=== PATIENT | female | born 1985 | race Caucasian/White ===

== ENCOUNTER → 2017-02-13 | Outpatient (CLI) | payer OTHER ==
--- NOTE | 2017-02-13 15:01 | XR ---
EXAMINATION TYPE: XR hand complete RT DATE OF EXAM: 02/13/2017 COMPARISON: NONE HISTORY: Pain TECHNIQUE: Three views are submitted. FINDINGS: The osseous structures are intact. The joint spaces are preserved and there is no acute fracture or dislocation. Arthropathy of the radiocarpal joint. IMPRESSION: 1. No definite acute fracture or dislocation if symptoms persist, follow-up study in 7 to 10 days wo uld be suggested
== END | disposition home or self-care (01) ==
LOC: RADXRMAIN 14:40
PROVIDERS: ATTEND Emergency Medicine
DX: S61.202A Unspecified open wound of right middle finger without damage to nail, initial encounter (principal); S67.192A Crushing injury of right middle finger, initial encounter; S67.190A Crushing injury of right index finger, initial encounter; S67.194A Crushing injury of right ring finger, initial encounter

== ENCOUNTER 2018-09-30 09:20 | Emergency (ER) | payer OTHER ==
[2018-09-30 09:29] VITALS: RESP 18
--- NOTE | 2018-09-30 09:56 | XR ---
EXAMINATION TYPE: XR chest 2V DATE OF EXAM: 09/30/2018 COMPARISON: None HISTORY: 33-year-old female cough and pain TECHNIQUE: PA and lateral views FINDINGS: Heart normal size. Aorta and pulmonary vasculature within normal limits. Mild interstitial prominence and slight patchy opacity at the left heart margin. No pleural effusion. IMPRESSION: Unable to exclude developing pneumonia at the inferior lingula.
[2018-09-30] MEDS ORDERED: DEXAMETHASONE 4 MG TAB PO STA (10:17)
--- NOTE | 2018-09-30 10:17 | ED ---
URI HPI - General Chief Complaint: Upper Respiratory Infection Stated Complaint: cough, no voice Time Seen by Provider: 09/30/18 09:35 Source: patient Mode of arrival: ambulatory Limitations: no limitations - History of Present Illness Initial Comments: 33-year-old female presenting today for chief complaint of cough sore throat and loss of voice. Patient states that Thursday she began having increasing cough and mucus production. She denies any hemoptysis she states she is a smoker. Patient states usually gets strep throat around this time and has had ice mild sore throat she denies any difficulty breathing or swallowing. Patient denies abdominal pain nausea vomiting diarrhea. Patient denies fever. Remaining review of systems negative, Patient denies any recent shortness of breath, chest pain, back pain, numbness or tingling, dysuria or hematuria, constipation, headaches, neck stiffness, ear pain or visual changes, or any other complaints. upon arrival patient appears well - Related Data Previous Rx's Medication Instructions Recorded Azithromycin [Zithromax Z-pack] 0 mg PO DIRECTED #6 tab 09/30/18 Allergies Allergy/AdvReac Type Severity Reaction Status Date / Time No Known Allergies Allergy Verified 09/30/18 09:36 Review of Systems ROS Statement: Those systems with pertinent positive or pertinent negative responses have been documented in the HPI. ROS Other: All systems not noted in ROS Statement are negative. Past Medical History Additional Past Medical History / Comment(s): carpal tunnel History of Any Multi-Drug Resistant Organisms: None Reported Past Surgical History: No Surgical Hx Reported Past Psychological History: No Psychological Hx Reported Smoking Status: Never smoker Past Alcohol Use History: Occasional Past Drug Use History: None Reported General Exam - General Exam Comments Initial Comments: General: The patient is awake and alert, in no distress, and does not appear acutely ill. Eye: +3 mm pupils are equal, round and reactive to light, extra-ocular movements are intact. No nystagmus. There is normal conjunctiva bilaterally. No signs of icterus. No photophobia Ears, nose, mouth and throat: There are moist mucous membranes and no oral lesions. Oropharynx was not erythematous there is no tonsillar enlargement exudates or lesions. Uvula midline. Tympanic membranes are not erythematous or is no effusions bulging or retraction. No tenderness to palpation of the mastoid. No anterior cervical lymphadenopathy. Rhinorrhea, clear and bilateral nares. No tripoding, no drooling. Neck: The neck is supple, there is no tenderness or JVD. No nuchal rigidity negative Brudzinski and Kernig Cardiovascular: There is a regular rate and rhythm. No murmur, rub or gallop is appreciated. Respiratory: Lungs are clear to auscultation, respirations are non-labored, breath sounds are equal. No wheezes, stridor, rales, or rhonchi. No retractions or abdominal breathing. Gastrointestinal: Soft, non-distended, non-tender abdomen without masses or organomegaly noted. There is no rebound or guarding present. Bowel sounds are unremarkable. Musculoskeletal: Normal ROM, no tenderness. Strength 5/5. Sensation intact. Radial pulses equal bilaterally 2+. Neurological: A&O x 3. CN II-XII intact, There are no obvious motor or sensory deficits. Coordination appears grossly intact. Speech hoarse. Skin: Skin is warm and dry and no rashes or lesions are noted. No extremity edema Psychiatric: Cooperative Limitations: no limitations Course Vital Signs 09/30/18 09/30/18 09:26 11:12 Temperature 99.5 F 98.8 F Pulse Rate 104 H 98 Respiratory 18 18 Rate Blood Pressure 150/83 142/93 O2 Sat by Pulse 99 100 Oximetry Medical Decision Making - Medical Decision Making The 3-year-old female presenting today for chief complaint of cough congestion sore throat. Patient is mildly erythematous oropharynx however states she for [place] strep pharyngitis. Rapid strep testing negative. There is no tonsillar exudates or anterior cervical lymphadenopathy to support strep pharyngitis. I've low suspicion. Patient's lungs are clear to auscultation however on chest x-ray revealed an area concerning for developing focal consolidation. This is noted at the left lingula. At this time will treat patient with azithromycin for an acquired pneumonia. She has not had recent hospitalizations or antibiotic use. Patient is given work note. Return parameters were discussed at length patient verbalizes understanding. Patient was discharged appearing well. She was agreeable care plan as well as outpatient follow-up. This case attending provider Dr. Littlejohn - Lab Data Lab Results 09/30/18 Range/Units 10:40 Group A Strep Rapid Negative (Negative) Disposition Clinical Impression: Pneumonia, Cough Disposition: HOME SELF-CARE Condition: Good Instructions (If sedation given, give patient instructions): Pneumonia (ED) Additional Instructions: Please use medication as discussed. Please follow-up with family doctor in the next 2 days. Please return to emergency room if the symptoms increase or worsen or for any other concerns. Prescriptions: Azithromycin [Zithromax Z-pack] 0 mg PO DIRECTED #6 tab Is patient prescribed a controlled substance at d/c from ED?: No Referrals: None,Stated [Primary Care Provider] - 1-2 days [facility] [NON-STAFF] - 1-2 days Time of Disposition: 11:02
[2018-09-30 11:14] VITALS: BP 142/93; PULSE 98; TEMP 98.8
== END 2018-09-30 11:14 | disposition home or self-care (01) ==
LOC: EC 09:20
DX: J18.9 Pneumonia, unspecified organism (principal)
CPT/HCPCS: 87081; 87430; 71046; 99283; J8540

== ENCOUNTER → 2021-10-08 | Outpatient (CLI) | payer OTHER ==
[2021-10-08 18:44] LABS: Hepatitis B Surface AB- Quant 11.3 mIU/mL
[2021-10-08 18:53] LABS: Hepatitis B Core IgM Nonreactive (Nonreactive); Hepatitis B Surface Antigen Nonreactive (Nonreactive); Hepatitis C IgG Antibody Nonreactive (Nonreactive)
[2021-10-09 05:46] LABS: Hepatitis B Surface Antibody Reactive (Nonreactive)
== END | disposition home or self-care (01) ==
LOC: LABWHC1 09:50
PROVIDERS: ATTEND Psychiatry & Neurology Neurology
DX: G35 Multiple sclerosis (principal)
CPT/HCPCS: 36415; 86705; 86706; 86787; 86803; 87340